=== PATIENT | male | born 1955 | race Caucasian/White ===

== ENCOUNTER 2021-03-14 20:17 | Emergency (ER) | payer MEDICARE ==
[2021-03-14] MEDS ORDERED: CHLORZOXAZONE500 MG PO (21:15)
[2021-03-14] MEDS ORDERED: PERCOCET 325 MG1 TAB PO (21:15)
[2021-03-14] MEDS ORDERED: AMLODIPINE BESYL5 MG PO (21:15)
[2021-03-14] MEDS ORDERED: ARIPIPRAZOLE15 MG PO (21:15)
[2021-03-14 21:48] VITALS: BP 152/86
== END 2021-03-14 22:48 | disposition home or self-care (01) ==
LOC: ED 20:17
DX: S52.122A Displaced fracture of head of left radius, initial encounter for closed fracture (principal); F31.9 Bipolar disorder, unspecified; I12.9 Hypertensive chronic kidney disease with stage 1 through stage 4 chronic kidney disease, or unspecified chronic kidney disease; N18.9 Chronic kidney disease, unspecified; G89.29 Other chronic pain; M54.5 Low back pain; F17.210 Nicotine dependence, cigarettes, uncomplicated; Z79.899 Other long term (current) drug therapy; X58.XXXA Exposure to other specified factors, initial encounter